=== PATIENT | male | born 1950 | race Caucasian/White ===

== ENCOUNTER 2024-03-19 10:10 | Outpatient (AMB) | payer MEDICARE, OTHER, SELFPAY ==
[2024-03-19 10:21] VITALS: BP 120/80; PULSE 66; O2SAT 99; BMI 25.3
--- NOTE | 2024-03-19 10:21 | MHC.OFFVIS ---
Vital Signs 03/19/24 10:21 Height 5 ft 7 in Weight 161 lb 8 oz BMI 25.3 BP 120/80 Blood Pressure Location Lt brachial Position Sitting Pulse 66 Pulse Source Pulse Oximeter Pulse Oximetry (%) 99 Oxygen Delivery Method Room Air Intake Visit Reasons: Arthritis Intake Note: Patient presents for follow up on osteoarthritis. Allergies No Known Allergies Allergy (Verified 03/19/24 10:23) HPI HPI Arthritis: Details: He is currently recovering from left shoulder surgery that occurred 12/24/2023. He is participating in physical therapy. He has not been compliant with doing regular back exercises learned from PT. Insurance is not covering dry needling, which patient receives for management of lower back pain. He has been noticing he has dexterity and strength in his hands. He does not have any pain in his hands at this time. He has not gone to occupational therapy. [facility] Medical History (Updated 03/19/24 @ 12:52 by Shahid Alejandro MD) Hx of nephrolithotomy with removal of calculi Surgical History (Updated 03/19/24 @ 10:28 by Melina Molina CMA) H/O inguinal hernia repair S/P rotator cuff repair Family History (Updated 03/19/24 @ 10:30 by Melina Molina CMA) Mother Osteoarthritis Social History (Updated 03/19/24 @ 10:29 by Melina Molina CMA) Alcohol intake: current Alcohol intake frequency: a few times a month Alcohol type: beer Patient Tobacco Use Status: Never used Tobacco Review of Systems Const All systems reviewed & are unremarkable except as noted in HPI and below Physical Exam Vital Signs: Last Vital Signs Pulse 66 03/19/24 10:21 BP 120/80 03/19/24 10:21 Pulse Ox 99 03/19/24 10:21 Oxygen Delivery Method Room Air 03/19/24 10:21 BMI result Body Mass Index 25.3 Const Other: General: Comfortable Skin: No lesions seen MSK: No tenderness of any joints in his hands. Heberden's nodes and Tete's nodes present. 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 Assessment & Plan Assessment & Plan (1) Osteoarthritis of hands, bilateral: Comment: Reduced function. We discussed importance of occupational therapy. We discussed the importance of having a regular exercise routine to build strength. Code(s): M19.041 - Primary osteoarthritis, right hand; M19.042 - Primary osteoarthritis, left hand Category: Medical Qualifiers: Osteoarthritis type: primary Qualified Code(s): M19.041 - Primary osteoarthritis, right hand; M19.042 - Primary osteoarthritis, left hand Plan: OT ordered given to patient to have it done at [facility], which is local to patient. Return to clinic in 3 months. (2) Lumbar spondylosis: Comment: Pain is controlled. Code(s): M47.816 - Spondylosis without myelopathy or radiculopathy, lumbar region Category: Medical Plan: He will resume exercises learned from PT. We discussed importance of having a regular exercise routine with at least 30 minutes a day of exercise. Return to clinic in 3 months Orders: Orders OT Evaluation and Treatment Today M19.041 - Primary osteoarthritis, right hand, M19.042 - Primary osteoarthritis, left hand Coding Level of Care Code Est Pt Level 3 (16814) Complex EM visit Add On G2211 Diagnoses Primary osteoarthritis of both hands M19.041; M19.042 Osteoarthritis type: primary Lumbar spondylosis M47.816
== END 2024-03-19 11:01 | disposition home or self-care (01) ==
PROVIDERS: Visit Provider Internal Medicine Rheumatology
DX: M19.041 Primary osteoarthritis, right hand (principal); M19.042 Primary osteoarthritis, left hand; M47.816 Spondylosis without myelopathy or radiculopathy, lumbar region
CPT/HCPCS: 99213; G2211

== ENCOUNTER → 2024-03-19 10:10 | Outpatient (BNVA) | payer MEDICARE, OTHER, SELFPAY | PROVIDERS: Visit Provider Internal Medicine Rheumatology | DX: M19.041 Primary osteoarthritis, right hand (principal); M19.042 Primary osteoarthritis, left hand; M47.816 Spondylosis without myelopathy or radiculopathy, lumbar region | CPT/HCPCS: 99212 ==

== ENCOUNTER 2024-06-12 12:23 | Outpatient (AMB) | payer MEDICARE, OTHER, SELFPAY ==
--- NOTE | 2024-06-12 12:30 | MHC.OFFVIS ---
Vital Signs 06/12/24 12:31 Height 5 ft 7 in Weight 166 lb 0.129 oz BMI 26.0 BP 130/72 Blood Pressure Location Rt brachial Position Sitting Pulse 64 Pulse Source Pulse Oximeter Pulse Oximetry (%) 98 Oxygen Delivery Method Room Air Intake Visit Reasons: Follow Up 3mo Intake Note: Patient presents for follow up on osteoarthritis. Allergies No Known Allergies Allergy (Verified 06/12/24 12:31) HPI HPI Follow Up 3mo: Details: He takes turmeric 1000 mg daily with black pepper, which has reduced his hand pain and has made it more tolerable. He completed occupational therapy and does exercises regularly at home. Dexterity is reduced in his fingers. 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 [facility] Medical History Hx of nephrolithotomy with removal of calculi Surgical History H/O inguinal hernia repair S/P rotator cuff repair Family History Mother Osteoarthritis Social History Alcohol intake: current Alcohol intake frequency: a few times a month Alcohol type: beer Patient Tobacco Use Status: Never used Tobacco Review of Systems Const All systems reviewed & are unremarkable except as noted in HPI and below Physical Exam Vital Signs: Last Vital Signs Pulse 64 06/12/24 12:31 BP 130/72 06/12/24 12:31 Pulse Ox 98 06/12/24 12:31 Oxygen Delivery Method Room Air 06/12/24 12:31 BMI result Body Mass Index 26.0 Const Other: General: Comfortable Skin: No lesions seen MSK: No tenderness of any joints in his hands. Heberden's nodes and Tete's nodes present. 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 Assessment & Plan Assessment & Plan (1) Osteoarthritis of hands, bilateral: Comment: Reduced function. He he completed occupational therapy and reports compliance with exercises. Turmeric help reduce joint pain. Code(s): M19.041 - Primary osteoarthritis, right hand; M19.042 - Primary osteoarthritis, left hand Category: Medical Qualifiers: Osteoarthritis type: primary Qualified Code(s): M19.041 - Primary osteoarthritis, right hand; M19.042 - Primary osteoarthritis, left hand Plan: Continue exercises learned from OT. 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 Continue turmeric 100 mg daily Return to clinic PRN (2) Lumbar spondylosis: Comment: Pain is controlled with PT exercises Code(s): M47.816 - Spondylosis without myelopathy or radiculopathy, lumbar region Category: Medical Plan: Return to clinic PRN Coding Level of Care Code Est Pt Level 3 (18483) Complex EM visit Add On G2211 Diagnoses Primary osteoarthritis of both hands M19.041; M19.042 Osteoarthritis type: primary Lumbar spondylosis M47.816
[2024-06-12 12:31] VITALS: BP 130/72; PULSE 64; O2SAT 98; BMI 26.0
--- OUTSIDE RECORDS SUMMARY | 2024-06-12 14:24 | XMS_ITS | Data Portability ---
Author Organization [facility], [place] Address [address] [address] Assessment No assessment recorded. Plan of Treatment Reminders Order Date Submit Date Provider Last Modified By Organization Details Last Modified Time Details Appointments None record ed. Lab None record ed. Referral None record ed. Procedures None record ed. Surgeries None record ed. Imaging None record ed. Medication Orders None record ed. Patient TargetsNo targets recorded. Patient Instructions Encounter Date Encounter Id Patient Instructions Last Modified By Organization Details Last Modified Time 09/28/2015 [id number] PVD OS acute discussed risk of ret tear/ det and for patient to call [facility] if any increased floaters, flashes or change in vision. Advised of natural course of PVD and to expect gradual reduction in symptoms over weeks/ months. Follow up in 4-6 weeks, either here or with bottle sorter closer to home (patient is visiting from [facility], returning home tomorrow) [email or web address] Not available 09/28/2015 13:31:49 Reason for Referral None Reported. Problems Name Problem SNOMED Code Status Onset Date Resolution Date Notes Provider Name and Address Organization Details Recorded Time Posterior vitreous detachment [id number] Active soy whitley [place] - [facility] 6 13:32:37 Problem Notes None recorded. Medical Equipment None Reported. Allergies No known drug allergies Medications Name Sig Start Date Stop Date Status Note LastModified by Organization Details LastModified Time trazodone 50 mg tablet active Not Available Not Available No t Available lovastatin 40 mg tablet active Not Available Not Available No t Available Lipitor active Not Available Not Avail able Not Available Vitals None Recorded Social History None recorded. Functional Status None recorded. Mental Status None recorded. Family History Relationship Description Onset Age of this Age Resolved Age Notes LastModified by Organization Details LastModified Time Father Glaucoma [email or web address] Not available 09/28/2015 12:58:41 Medical History Condition Response Are you being treated for HIGH CHOLESTRO L? Y Past Encounters Encounter ID Performer Location Encounter Start Date Encounter Closed Date Diagnosis/Indication Diagnosis SNOMED-CT Code Diagnosis ICD10 Code Diagnosis Note [id number] Sherice Joyce [place] [facility] [address] [facility] [place] [address] 09/28/2015 12:32:54 09/28/2015 14:52:26 Posterior vitreous detachment 042083734 H43.812 Health Concerns Section Related Observation LastModified by Organization Detai ls LastModified Time None Recorded Concern Status LastModified by Organization Details LastModified Time None Recorded Advance Directives Directive None Recorded Payers Encounter Date Sequence Insurance Name Policy Number Policy Wang Covered Member ID Wang Member ID Guarantor Name 09/28/2015 1 [facility] IN[facility] - [facility] [id number] Dat Weber [id number] Dat Weber Notes Date Note Type Note Provider Name and Address Organization Details Recorded Time 09/28/2015 text/html Flashes/Floater sReported bypatient.Locat ion:periodic flashing lights (photopsia);obj ects moving within the field of view (floaters); left Severity:no pain Duration:consta nt Onset/Timind ays Modifying Factors:nothing gives relief; nothing makes it worse Associated Symptoms:normal vision dictated to osvaldo whitley MA - [facility] 09/28/2015 13:34:08
== END 2024-06-12 13:29 | disposition home or self-care (01) ==
LOC: HO.RHES 12:25
PROVIDERS: PCP Internal Medicine; Visit Provider Internal Medicine Rheumatology
DX: M19.041 Primary osteoarthritis, right hand (principal); M19.042 Primary osteoarthritis, left hand; M47.816 Spondylosis without myelopathy or radiculopathy, lumbar region
CPT/HCPCS: 99213; G2211

== ENCOUNTER → 2024-06-12 12:23 | Outpatient (BNVA) | payer MEDICARE, OTHER, SELFPAY | PROVIDERS: PCP Internal Medicine; Visit Provider Internal Medicine Rheumatology | DX: M19.041 Primary osteoarthritis, right hand (principal); M19.042 Primary osteoarthritis, left hand; M47.816 Spondylosis without myelopathy or radiculopathy, lumbar region | CPT/HCPCS: 99212 ==

== ENCOUNTER 2025-01-28 09:12 | Outpatient (AMB) | payer MEDICARE, OTHER, SELFPAY ==
--- NOTE | 2025-01-28 09:31 | A.OFFVIS_ITS ---
Intake Visit Reasons: BPH/Elevated PSA Intake Note: New patient presents today for initial visit for BPH/Elevated PSA Urology Medication:Tamsulosin Blood Thinner:None Antibiotic Allergies:None PVR:480ml Allergies No Known Allergies Allergy (Verified 01/28/25 09:43) HPI Comments Details: Ashok is a pleasant male. He is a patient of Dr. Mane. 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+ Add finasteride Plan bladder ultrasound Six-month follow-up [facility] Medical History Insomnia IFG (impaired fasting glucose) Hyperlipidemia BPH (benign prostatic hyperplasia) Hx of nephrolithotomy with removal of calculi Surgical History H/O inguinal hernia repair S/P rotator cuff repair Family History Mother Osteoarthritis Social History Alcohol intake: current Alcohol intake frequency: a few times a month Alcohol type: beer Patient Tobacco Use Status: Never used Tobacco Review of Systems Const Denies chills and Denies fever(s) Card Reports no additional complaints and Denies syncope Resp Denies cough GI Denies abdominal pain and Denies heartburn Reports as per HPI and Denies change in libido Neuro Denies syncope Psych Denies change in libido Endo Denies change in libido Physical Exam Const General: cooperative, healthy appearing, comfortable and no acute distress Orientation/consciousness: patient oriented x3 HEENT Face and sinus: Yes normal facial exam Mouth: moist mucous membranes Neck Neck: Yes normal visual inspection, Yes full ROM and Yes trachea midline Chest Chest palpation & inspection: normal inspection of the chest Resp Effort & Inspection: normal respiratory effort, able to speak in complete sentences and no respiratory distress GI Inspection: Yes normal to inspection Rectal Exam - Male: Yes normal sphincter tone and Yes prostate normal Male General Exam: Yes normal external exam Penis: normal penis and circumcised Meatus: meatus normal Scrotum: scrotum normal Testes: Testes normal Back/Spine/Pelvis Cervical Spine: normal cervical lordosis Thoracic/Lumbar Spine: thoracic and lumbar spine normal to inspection Skin General skin exam: no rashes or lesions noted Neuro General: patient oriented x3, gait normal, tone normal and moves all extremities Extrem General: Yes normal to inspection and Yes capillary refill normal Assessment & Plan Assessment & Plan (1) Elevated PSA: Code(s): R97.20 - Elevated prostate specific antigen [PSA] Category: Medical (2) Bladder outlet obstruction: Code(s): N32.0 - Bladder-neck obstruction Category: Medical Plan Start dutasteride Bladder ultrasound Follow-up PSA Orders: Orders US bladder Today N32.0 - Bladder-neck obstruction PSA,Total (Free>4and<10) 6 Months N32.0 - Bladder-neck obstruction Medications: New dutasteride 0.5 mg PO DAILY 90 caps 1RF 90 days N32.0 - Bladder-neck obstruction Patient Instructions: This note is constructed using voice recognition software. While every effort has been made to ensure accuracy director of special services errors may have been included. Imaging studies, laboratory and physical exam results were discussed and reviewed in detail. No major barriers to patient understanding were identified. An opportunity to ask questions regarding the treatment plan was provided. All questions were answered. The patient expressed understanding and agreement with the above treatment plan. The patient is aware they should contact our office by phone for worsening of their current condition or the appearance of new urologic symptoms. Compliance is encouraged with any medications and followup testing that is ordered. It is a privilege to participate in the urologic care of your patient. If you have any questions or concerns regarding treatment for the above conditions, or other urologic issues, please do not hesitate to contact me. The office telephon e contact is [phone]. Sincerely, Dr Domenico Hernandez MD, [facility] - Urology Compassionate Specialist Care for the Genitourinary System Coding Level of Care Code New Pt Level 4 (97921) Diagnoses Elevated PSA R97.20 Bladder outlet obstruction N32.0
--- OUTSIDE RECORDS SUMMARY | 2025-01-28 10:10 | XMS_ITS | Data Portability ---
Author Organization [facility], [place] Address [address] [address] Assessment No assessment recorded. Plan of Treatment [...] By Organization Details Last Modified Time 09/28/2015 [id number] PVD OS acute discussed risk of ret tear/ det and for patient to call [facility] if any increased floaters, flashes or change in vision. Advised of natural course of PVD and to expect gradual reduction in symptoms over weeks/ months. Follow up in 4-6 weeks, either here or with lab specialist closer to home (patient is visiting from [facility], returning home tomorrow) [email or web address] Not available 09/28/2015 13:31:49 Reason for Referral None Reported. Problems Name Problem SNOMED Code Status Onset Date Resolution Date Notes Provider Name and Address Organization Details Recorded Time Posterior vitreous detachment [id number] Active audrey whitley [facility] 13:32:37 Problem Notes None recorded. Medical Equipment [...] Diagnosis SNOMED-CT Code Diagnosis ICD10 Code Diagnosis IMO Codes Diagnosis Note [id number] Audrey Gill MD [place] [facility] [address] [facility] [place] [address] 09/28/2015 12:32:54 09/28/2015 14:52:26 Posterior vitreous detachment [id number] H43.812 Health Concerns Section Related Observation LastModified by Organization Detai ls LastModified Time None Recorded Concern Status LastModified by Organization Details LastModified Time None Recorded Advance Directives Directive None Recorded Payers Insurance Date Sequence Insurance Name Policy Number Policy Wang Covered Member ID Wang Member ID Guarantor Name 11/21/2015 1 [facility] IN[facility]MNITY PLAN (INDEMNITY) [id number] Dat Weber [id number] Dat Weber Notes Date Note Type Note Provider Name and Address Organization Details Recorded Time 09/28/2015 text/html Flashes/Floaters Report ed by PatientHPIFor location, patient reportsperiodic flashing lights (photopsia)andobjects moving within the field of view (floaters)but reportsleft. For severity, patient reportsno pain. For duration, patient reportsconstant. For onset/timing, patient [id number]. For modifying factors, patient reportsnothing gives reliefandnothing makes it worse. For associated symptoms, patient reportsnormal vision. dictated to osvaldo whitley MA - [facility] 09/28/2015 13:34:08
== END 2025-01-28 10:32 | disposition home or self-care (01) ==
LOC: HO.HUSH 09:12
PROVIDERS: PCP Internal Medicine; Visit Provider Urology
DX: R97.20 Elevated prostate specific antigen [PSA] (principal); N32.0 Bladder-neck obstruction
CPT/HCPCS: 99204

== ENCOUNTER → 2025-01-28 09:12 | Outpatient (BNVA) | payer MEDICARE, OTHER, SELFPAY | PROVIDERS: PCP Internal Medicine; Visit Provider Urology | DX: R97.20 Elevated prostate specific antigen [PSA] (principal); N32.0 Bladder-neck obstruction | CPT/HCPCS: 99202 ==